=== PATIENT | female | born 1965 | race Caucasian/White ===

== ENCOUNTER 2021-06-08 18:36 | Emergency (ER) | payer BC ==
[~2021-06-08] VITALS: Ht 172.7 cm; Wt 86.2 kg
[2021-06-08] MEDS ORDERED: METOPROLOL TART50 M1 PO (18:44)
[2021-06-08] MEDS ORDERED: RISPERIDONE3 M2 PO (18:45)
[2021-06-08] MEDS ORDERED: NAPROXEN250 MG PO (20:08)
== END 2021-06-08 20:31 | disposition home or self-care (01) ==
LOC: ED 18:36
DX: S00.11XA Contusion of right eyelid and periocular area, initial encounter (principal); F10.10 Alcohol abuse, uncomplicated; F17.200 Nicotine dependence, unspecified, uncomplicated; Z79.899 Other long term (current) drug therapy; W19.XXXA Unspecified fall, initial encounter; Y93.89 Activity, other specified; Y92.89 Other specified places as the place of occurrence of the external cause; Y99.8 Other external cause status

== ENCOUNTER 2023-03-30 20:28 | Emergency (ER) | payer BC ==
[~2023-03-30] VITALS: Ht 167.6 cm; Wt 95.3 kg
[~2023-03-30 20:28] MED LIST: METOPROLOL TART50 M1 PO; NAPROXEN250 MG PO; RISPERIDONE3 M2 PO
[2023-03-30 23:16] LABS: BASO # 0.1 10*3/uL (0.0-0.1); BASO % 0.7 % (0.0-1.0); EOS # 0.1 10*3/uL (0.0-0.4); EOS % 0.5 % (1.0-4.0); LYMPH # 2.5 10*3/uL (1.3-4.4); LYMPH % 23.1 % (27.0-41.0); MEAN CELL VOLUME 94.7 fl (81.0-99.0); MEAN CORPUSCULAR HGB 31.8 pg (27.0-31.0); MEAN CORPUSCULAR HGB CONC 33.6 g/dl (33.0-37.0); MEAN PLATELET VOLUME 10.1 fl (9.6-12.3); MONO # 0.6 10*3/uL (0.1-1.0); MONO % 5.8 % (3.0-9.0); NEUT # 7.4 10*3/uL (2.3-7.9); NEUT % 69.5 % (47.0-73.0); PLATELET COUNT AUTOMATED 368 10*3/uL (130-400); RED BLOOD COUNT 4.75 10*6/uL (4.10-5.10); RED CELL DISTRI WIDTH 13.2 % (0-14.5); WHITE BLOOD COUNT 10.7 10*3/uL (4.8-10.8)
[2023-03-30 23:39] LABS: ALKALINE PHOSPHATASE 100 U/L (46-116); BUN 14 mg/dl (9-23); CHLORIDE 108 mmol/L (98-107); ETHYL ALCOHOL 148.3 mg/dl (<3); POTASSIUM 4.4 mmol/L (3.4-5.1); SGPT/ALT 85 U/L (10-49); TOTAL PROTEIN 7.8 gm/dL (6.0-8.0)
[2023-03-30 23:43] LABS: BILIRUBIN Negative (Negative); BLOOD Negative (Negative); CLARITY Clear (Clear); COLOR Yellow (Yellow); GLUCOSE Negative (Negative); KETONE Negative (Negative); LEUKO ESTERASE Negative (Negative); NITRITE Negative (Negative); UROBILINOGEN 0.2 E.U./dl (0.0-1.0)
[2023-03-30 23:50] LABS: URINE AMPHETAMINES Negative (1000ng/ml); URINE BARBITURATES Negative (200ng/ml); URINE BENZODIAZEPINES Positive (200ng/ml); URINE CANNABINOIDS (THC) Negative (50ng/ml); URINE COCAINE Negative (300ng/ml); URINE METHADONE Negative (300ng/ml); URINE OPIATES Negative (300ng/ml); URINE PHENCYCLIDINE Negative (25ng/ml)
[2023-03-31 00:06] LABS: WBC 0-2 wbc/hpf (0-5)
== END 2023-03-31 11:00 | disposition home or self-care (01) ==
LOC: ED 20:28
PROVIDERS: Internal Medicine
DX: F10.129 Alcohol abuse with intoxication, unspecified (principal); Y90.9 Presence of alcohol in blood, level not specified